=== PATIENT | female | born 1945 | race Caucasian/White ===

== ENCOUNTER 2021-07-31 12:33 | Outpatient (CLI) | payer MEDICARE, OTHER, SELFPAY ==
[2021-07-31 13:02] VITALS: PULSE 102; PULSE 103; PULSE 104; PULSE 105; PULSE 86; PULSE 92; O2SAT 87; O2SAT 88; O2SAT 91; O2SAT 92; O2SAT 94; O2SAT 95
--- NOTE | 2021-07-31 13:06 | CPS ---
Pt arrived for 6 min. walk on room air. Pt's saturation was 87% while at rest on room air. Pt was placed on 1 lpm prior to walk with saturation coming up to 92%. At minute 2 of walk saturation was 88% on 1 lpm. Pt was increased to 2 lpm and finished walk on 2 lpm.
--- NOTE | 2021-08-01 10:53 | PCM.PSN.6M ---
PSN 6 Minute Walk Test 6 Minute Walk Test 6 Minute Walk Test: 6 Minute Walk Test PSN:6-Minute Walk Test Start: 07/31/21 13:02 Freq: Status: Active Protocol: [id number] Document 07/31/21 13:02 [facility] (Rec: 07/31/21 13:06 [facility] [id number]) 6 Minute Walk Test Date Performed 07/31/21 Time Performed 12:30 Height 5 ft Weight: 47.627 kg Weight in Pounds 105.[address]: Douglas Florian Assistive device used: None Pre-test Oxygen Delivery Method Room Air Pulse Ox (%) 87 Pulse Rate (60-100 beats/min) 86 Dyspnea Xavi Scale (0-10) 0 Exertion Xavi Scale (6-20) 6 1st minute Oxygen Flow Rate (L/min) (L/min) 1 Oxygen Delivery Method Nasal Cannula Pulse Ox (%) 91 Pulse Rate (60-100 beats/min) 105 H 2nd minute Oxygen Flow Rate (L/min) (L/min) 1 Oxygen Delivery Method Nasal Cannula Pulse Ox (%) 88 Pulse Rate (60-100 beats/min) 105 H Dyspnea Xavi Scale (0-10) 0 3rd minute Oxygen Flow Rate (L/min) (L/min) 2 Oxygen Delivery Method Nasal Cannula Pulse Ox (%) 94 Pulse Rate (60-100 beats/min) 103 H 4th minute Oxygen Flow Rate (L/min) (L/min) 2 Oxygen Delivery Method Nasal Cannula Pulse Ox (%) 94 Pulse Rate (60-100 beats/min) 102 H 5th minute Oxygen Flow Rate (L/min) (L/min) 2 Oxygen Delivery Method Nasal Cannula Pulse Ox (%) 91 Pulse Rate (60-100 beats/min) 105 H 6th minute Oxygen Flow Rate (L/min) (L/min) 2 Oxygen Delivery Method Nasal Cannula Pulse Ox (%) 92 Pulse Rate (60-100 beats/min) 104 H Dyspnea Xavi Scale (0-10) 0 Exertion Xavi Scale (6-20) 11 Post-test Oxygen Flow Rate (L/min) (L/min) 2 Oxygen Delivery Method Nasal Cannula Pulse Ox (%) 95 Pulse Rate (60-100 beats/min) 92 Full Laps Walked 17 Partial Lap, Number of Tiles Walked 20 Total Distance Walked (ft) 1023 Interpretation Interpretation: The patient ambulated 1023 feet over the course of 6 minutes beginning on room air without assistive devices. Pretesting oxygen saturation was noted to be 87% on room air. She was subsequently placed on 1 L/min of oxygen to begin the test. With ambulation, the nola oxygen saturation was 88%. The supplemental oxygen flow rate was increased to 2 L/min and the patient was able to complete the remainder of the test while maintaining appropriate oxygen saturations. Recommendations Recommendations: 2 L/min of supplemental oxygen should be utilized at all times.
== END 2021-07-31 23:59 | disposition home or self-care (01) ==
PROVIDERS: Referring Provider Internal Medicine Critical Care Medicine; Visit Provider Internal Medicine Critical Care Medicine
DX: R06.00 Dyspnea, unspecified (principal); F17.210 Nicotine dependence, cigarettes, uncomplicated
CPT/HCPCS: 94618

== ENCOUNTER 2021-08-01 09:52 | Outpatient (CLI) | payer MEDICARE, OTHER, SELFPAY ==
--- NOTE | 2021-08-02 12:23 | PFT ---
INTRODUCTION: The patient is a 76-year-old female that presents for pulmonary function studies secondary to a diagnosis of dyspnea. Respiratory therapy reported good patient effort. Bronchodilators were used during testing. INTERPRETATION: Forced expiration spirometry demonstrates the presence of a severe large airways obstructive ventilatory defect. There was a significant response to aerosolized bronchodilators noted, based upon change in FVC. Spirograms are of good quality but do not plateau indicating slow emptying of the lungs. Body plethysmography was performed and revealed an elevated TLC and RV, indicative of underlying hyperinflation and air trapping. Diffusing capacity by single breath CO is reduced at 38% of predicted. IMPRESSION: Partially reversible severe large airways obstructive ventilatory defect with associated hyperinflation, air trapping and symmetric reduction in diffusing capacity.
== END 2021-08-01 23:59 | disposition home or self-care (01) ==
LOC: PSN 09:54
PROVIDERS: Referring Provider Internal Medicine Critical Care Medicine; Visit Provider Internal Medicine Critical Care Medicine
DX: R06.00 Dyspnea, unspecified (principal); F17.210 Nicotine dependence, cigarettes, uncomplicated
CPT/HCPCS: 94060; 94726; 94729

== ENCOUNTER 2021-08-02 13:53 | Outpatient (CLI) | payer MEDICARE, OTHER, SELFPAY ==
--- NOTE | 2021-08-02 13:54 | ECHOD_ITS ---
Reason For Study: Dyspnea/SOB Procedure This was a 2D Doppler, Color Flow transthoracic echocardiogram. Technically difficult study due to patients breast implants. The study was technically difficult. Exam performed in department. Left Ventricle Normal LV size. Left ventricular systolic function is normal. The estimated ejection fraction is 65 %. Diastolic function is indeterminate. No regional wall motion abnormalities noted. Right Ventricle Normal RV size. Normal systolic function. Atria Normal left atrium. Normal right atrium. No doppler evidence for ASD. Mitral Valve There is no mitral annular calcification. Normal mitral valve. Trivial mitral valve insufficiency. Tricuspid Valve Normal tricuspid valve. Trivial tricuspid valve insufficiency. Unable to estimate RV systolic pressure/pulmonary artery pressure due to technically difficult study. Aortic Valve Trisinus/trileaflet aortic valve. Mild focal aortic valve calcification. Pulmonic Valve The pulmonic valve is not well visualized. Great Vessels The aortic root is not well visualized. Pericardium/Pleural No pericardial effusion. MMode/2D Measurements & Calculations LVIDd: 2.6 cm IVSd: 0.80 cm LA dimension: 2.1 cm LVIDs: 1.8 cm LVPWd: 0.78 cm FS: 32.0 % LAV(MOD-sp2): 24.8 ml Time Measurements MV dec time: 0.20 sec Doppler Measurements & Calculations MV E max frederic: 106.1 cm/sec Lat Peak E' Frederic: 6.8 cm/sec Med Peak E' Frederic: 8.2 cm/sec MV A max frederic: 116.3 cm/sec E/E' lat: 15.5 E/E' med: 12.9 MV E/A: 0.91 MV V2 max: 98.1 cm/sec MV P1/2t max frederic: 91.3 cm/sec Ao V2 max: 115.4 cm/sec MV max P.9 mmHg MV P1/2t: 86.4 msec Ao max P.3 mmHg MV V2 mean: 58.8 cm/sec MV mean P.6 mmHg MV dec slope: 309.5 cm/sec2 MV V2 VTI: 20.8 cm MVA(P1/2t): 2.5 cm2 LV V1 max: 105.3 cm/sec PA V2 max: 118.5 cm/sec LV V1 max P.4 mmHg ECHO/Echo Complete Interpretation Summary The study was technically difficult. Left ventricular systolic function is normal. The estimated ejection fraction is 65 %. Trivial mitral valve insufficiency. Trivial tricuspid valve insufficiency. Mild focal aortic valve calcification. Unable to estimate RV systolic pressure/pulmonary artery pressure due to techni tavon difficult study. Diastolic function is indeterminate. Ordering Physician: Douglas Florian Referring Physician: No PCP noted Performed By: Ronny Zimmer RCS
--- NOTE | 2021-08-02 14:30 | CT_ITS ---
HISTORY: Screening. TECHNIQUE: Helically acquired images were obtained of the chest without contrast. A radiation dose optimization technique was used for this scan. # of images incl. paperwork: [id number]. COMPARISON: None. FINDINGS: LARGE AIRWAYS: Clear. LUNGS: Emphysema with mild biapical scarring. 3 mm groundglass right upper lobe nodule. PLEURA: No pleural effusion. HEART AND PERICARDIUM: Heart within normal limits in size. No pericardial effusion. Coronary artery disease. VESSELS: Thoracic aorta nondilated. MEDIASTINUM AND SURESH: No enlarged lymph nodes. SOFT TISSUES: Calcified breast implant capsules with bilateral intracapsular and mild right extracapsular rupture. BONES: Degenerative change. CT/Low Dose CT Lung Screening IMPRESSION: Emphysematous lungs with a 3 mm groundglass right upper lobe pulmonary nodule. Lung-RADS category 2: Benign appearance. Continue annual screening with low-dose CT. Individualized dose optimization techniques were used for this CT. at 1655 Reported and signed by: Lola Garza MD Electronically Signed: Lola Garza MD at 16:54 EST ,
== END 2021-08-02 23:59 | disposition home or self-care (01) ==
LOC: CVS 13:54
PROVIDERS: Referring Provider Internal Medicine Critical Care Medicine; Visit Provider Internal Medicine Critical Care Medicine
DX: F17.210 Nicotine dependence, cigarettes, uncomplicated (principal); R06.00 Dyspnea, unspecified
CPT/HCPCS: 71271; 93306

== ENCOUNTER 2023-04-24 11:27 | Emergency (ER) | payer MEDICARE, OTHER, SELFPAY ==
[2023-04-24 11:28] VITALS: BP 121/63; PULSE 92; RESP 16; TEMP 36.1; O2SAT 99; BMI 21.7
--- NOTE | 2023-04-24 12:34 | CT_ITS ---
EXAM: CT ABDOMEN AND PELVIS WITH INTRAVENOUS CONTRAST CLINICAL INDICATION: pain TECHNIQUE: Helically acquired images were obtained of the abdomen and pelvis with intravenous contrast. This CT exam was performed using one or more of the following dose reduction techniques: automated exposure control, adjustment of the mA and/or kV according to patient size, and/or use of iterative reconstruction technique. CONTRAST: IV 100mL Isovue-300 COMPARISON: No relevant prior studies available. FINDINGS: LOWER THORAX: Normal. Lung bases are clear. No cardiomegaly. No pericardial effusion. ABDOMEN: LIVER: Normal. Homogeneous. No focal mass. PANCREAS: Normal. No focal cystic or solid mass. SPLEEN: Normal. Normal size without focal cystic or solid mass. ADRENALS: Normal. No nodules. KIDNEYS AND URETERS: Normal. Normal renal size and position. No hydronephrosis. STOMACH AND BOWEL: Mild thickening of the gastric antral wall raises possibility of acute inflammatory change. PELVIS: APPENDIX: No evidence of acute appendicitis. BLADDER: Normal. REPRODUCTIVE: Mild distention of a parametrial and bilateral ovarian veins may represent changes of pelvic venous insufficiency. 19 mm left ovarian cyst. ACR White Paper guidelines (Cruz, et. al. JACR 2020;17(2):248-254) suggest no follow-up is necessary. ABDOMEN and PELVIS: INTRAPERITONEAL SPACE: Normal. No ascites or other fluid collection. No free air. BONES/JOINTS: 2.2 cm saccular ectasia of the infrarenal abdominal aorta. SOFT TISSUES: Normal. No discrete abdominal or pelvic wall hernia. VASCULATURE: See above. LYMPH NODES: Normal. No enlarged lymph nodes. CT/Abdomen/Pelvis W IV Cont ONLY IMPRESSION: Question gastric antritis. Electronically Signed: Luis Ellis MD at 13:47 EDT ,
--- NOTE | 2023-04-24 12:36 | ED.VIS.GI ---
HPI HPI - GI History of Present Illness Chief Complaint: Abd Pain Informant: patient Narrative Narrative: Patient presents with abdominal pain. Patient tells me its not a week. She thinks it started on Thursday. It is epigastric and goes to both sides. It is not in the back in any time. She has never been syncopal or presyncopal. She does not have nausea vomiting or diarrhea or change in bowel habits. No constipation. She is eating and drinking okay. No GERD or history of GERD. No urinary symptoms. When specifically asked, she does state that sometimes the pain seems to go into the lower chest but mostly its upper abdomen. She has never been short of breath. No history of AAA or any vascular disease. Her only illness is COPD. She has never had diabetes or cholesterol or high blood pressure. She states she does not feel sick but it does hurt in the upper abdomen. Nothing really seems to change it. She denies any prior abdominal surgery including no hysterectomy or cholecystectomy. On her chart I do see history of a kidney stone but she has no urinary symptoms flank or back pain. All of her pain is anterior. She does not drink alcohol except a rare glass of wine. She has never had pancreatitis. [facility] Medical History Bladder infection COPD (chronic obstructive pulmonary disease) Kidney stone Home Medications folic acid 1 mg tablet 1 mg PO DAILY 07/17/21 [History Last Taken Unknown] multivitamin 1 tab PO DAILY 07/17/21 [History Last Taken Unknown] glycopyrrolate 9 mcg-formoterol 4.8 mcg HFA aerosol inhaler (Bevespi Aerosphere) 2 puff inhalation QAM AND QPM #1 inh 09/24/22 [Rx Last Taken Unknown] esomeprazole magnesium 20 mg capsule,delayed release (Nexium) 20 mg PO DAILY #30 caps 04/24/23 [Rx Last Taken Unknown] sucralfate 1 gram tablet (Carafate) 1 g PO BID #20 tabs 04/24/23 [Rx Last Taken Unknown] Allergy/AdvReac Type Severity Reaction Status Date / Time Sulfa (Sulfonamide AdvReac Rash Verified 04/24/23 11:29 Antibiotics) Family History Father COPD (chronic obstructive pulmonary disease) Surgical History No pertinent past surgical history Social History Smoking Status: Current every day smoker tobacco type: cigarettes ROS ROS ED ROS Narrative A complete review of systems was performed and is negative except as documented in the history of present illness. Some specific details below. Constitutional: No recent fevers or chills. EYE: No change in eye color. ENT: No difficulty swallowing. No swelling. No pain. No GERD. No pain with swallowing. CV: No palpitations. Occasionally she feels some discomfort in the lower chest but mostly upper abdomen. Respiratory: No dyspnea. No hemoptysis. No difficulty taking breaths. GI: Please see history of present illness. : No frequency dysuria or hematuria. Musculoskeletal: No recent trauma. No pains. Skin: No rash. Nondiaphoretic. Neuro: No weakness or numbness. Endocrine: No polyuria or polydipsia. EXAM Physical Exam Narrative Exam Narrative: CONSTITUTIONAL: Patient is nontoxic in appearance. The patient looks comfortable. HEENT: No notable trauma. Mucous membranes moist. EYES: No conjunctival injection. No pallor. CARDIOVASCULAR: Regular rate. Regular rhythm. No notable murmur. No JVD. Tones are not muffled and peripheral pulses including lower extremities are intact equal and strong. RESPIRATORY: No respiratory distress. Breathing is unlabored. No wheezes. No rhonchi. No rales. No pain with a deep breath. GASTROINTESTINAL: Not distended. Bowel sounds are normal. She does have some mild tenderness across the upper abdomen. But no rebound or guarding. I hear no bruit. I do not feel pulsatile mass. GENITOURINARY: No tenderness over the bladder. No CVA tenderness on either side.. MUSCULOSKELETAL: Atraumatic. No peripheral edema. No cord. NEUROLOGICAL: Patient is alert and appropriate. No focal deficit noted. SKIN: No noted rashes. No diaphoresis. No pallor. No mottling of the lower extremities. PSYCHIATRIC: Patient is calm. Mood is appropriate. Const Vital Signs: 04/24/23 11:28 Temperature 97 F L Temperature Source Temporal Pulse Rate 92 Respiratory Rate 16 Blood Pressure 121/63 H Blood Pressure Mean 82 Pulse Ox 99 Oxygen Delivery Method Room Air MDM MDM MDM Narrative Medical decision making narrative: Patient CBC shows no marked abnormality. Patient's electrolytes look good. She had trace elevation of the glucose at 115. Patient's LFTs show no marked abnormalities. Patient's lipase is normal. My independent interpretation of the patient's CT scan of the abdomen shows no obstruction or free air. Final reading did make note of what they suspect is some antral gastritis with some mild thickening of the antral wall. This patient has some discomfort but she is eating and drinking and moving bowels fine. No fevers or chills. No nausea or vomiting. My suspicion is that this may represent ulcer disease with the CT findings. We will get her on a PPI. I will write for short course of Carafate. We discussed that this is unlikely cancer but she may need a scope in the future. If she develops pain, vomiting, fevers, blood in the stool or any other concerns she should return. Lab Data Attestation: I reviewed the patient's lab results. Labs: Laboratory Results - last 24 hr 04/24/23 11:50 WBC 10.6 RBC 4.80 Hgb 14.4 Hct 44.5 MCV 92.7 MCH 30.0 MCHC 32.4 RDW Std Deviation 48.7 H RDW Coeff of Skyla 14.1 Plt Count 368 MPV 9.1 Immature Gran % (Auto) 0.200 Neut % (Auto) 74.5 H Lymph % (Auto) 15.5 L [place] % (Auto) 8.3 Eos % (Auto) 0.8 Baso % (Auto) 0.7 Absolute Neuts (auto) 7.9 H Absolute Lymphs (auto) 1.64 Nucleated RBC % 0 Sodium 137 Potassium 4.0 Chloride 101 Carbon Dioxide 32.0 Anion Gap 4 L BUN 16 Creatinine 0.72 Estim Creat Clear Calc 33.30 Est GFR (MDRD) Af Amer 100 Est GFR (MDRD) Non-Af 83 BUN/Creatinine Ratio 22.2 H Glucose 115 H Calcium 9.6 Total Bilirubin 0.40 AST 14 L ALT 15 Alkaline Phosphatase 97 Troponin I High Sens 5 Total Protein 7.7 Albumin 3.9 Globulin 3.8 Albumin/Globulin Ratio 1.0 Lipase 62 Radiography Diagnostic Testing: Clinical Impression(s) from Imaging Studies Abdomen/Pelvis CT 04/24/23 12:34 IMPRESSION: Question gastric antritis. Electronically Signed: Luis Ellis MD at 13:47 EDT , Discharge Plan Triage Chief Complaint: Abd Pain ED Provider: Red Ayala Dx/Rx/DC Orders Clinical Impression: Gastritis, Abdominal pain Instructions: Abdominal Pain, ED Gastritis (Adult) Prescriptions: New esomeprazole magnesium [Nexium] 20 mg capsule,delayed release(DR/EC) 20 mg PO DAILY Qty: 30 0RF sucralfate [Carafate] 1 gram tablet 1 g PO BID Qty: 20 0RF No Action multivitamin Tablet 1 tab PO DAILY folic acid 1 mg tablet 1 mg PO DAILY Bevespi Aerosphere 9-4.8 mcg HFA aerosol inhaler 2 puff inhalation QAM AND QPM Qty: 1 11RF Primary Care Provider: Care Physician,No Primary Referrals: Daniel Gallego MD [Med Staff - Clarification Operator] - As soon as possible FriendRaz DO [Med Staff - Active Staff] - 10-14 Days if not better Care Physician,No Primary [Primary Care Provider] - Disposition Disposition: Home, Self Care
--- NOTE | 2023-04-24 12:37 | EKG12_ITS ---
Test Reason : Blood Pressure : / mmHG Vent. Rate : 075 BPM Atrial Rate : 075 BPM P-R Int : 134 ms QRS Dur : 082 ms QT Int : 364 ms P-R-T Axes : 083 078 051 degrees QTc Int : 406 ms Normal sinus rhythm Normal ECG Confirmed by TEJINDER RIOS, LILIANE ([id number]), social media editor CLINT GARCIA ([id number]) on 05/04/2023 7:45:43 AM Referred By: Confirmed By:MARY MARR MD
[2023-04-24 12:47] LABS: Absolute Lymphocyte Count 1.64 X10^3/uL (0.83-4.51); Absolute Neutrophil Count 7.9 X10^3/uL (2.0-7.7); Basophil# 0.07 X10^3/uL; Basophil% 0.7 % (0-1); Eosinophil# 0.08 X10^3/uL; Eosinophils% 0.8 % (0-5); Hematocrit 44.5 % (37-47); Hemoglobin 14.4 g/dL (12.0-15.0); Lymphocyte # 1.64 X10^3/ul (0.83-4.51); Lymphocyte % 15.5 % (19-41); Mean Corp Hgb Conc 32.4 g/dL (32-36); Mean Corpuscular Volume 92.7 fL (81-99); Mean Platelet Vol. 9.1 fl (6.2-12.0); Monocyte# 0.88 X10^3/uL; Monocyte% 8.3 % (0-10); NRBC Flagged by Analyzer 0 % (0-5); Neutrophil # 7.88 X10^3/uL (2.7-7.7); Neutrophil % 74.5 % (47-70); Platelet Count 368 K/mm3 (150-450); RBC Distribution Width CV 14.1 % (11.6-14.6); RBC Distribution Width SD 48.7 fl (35.1-43.9); White Blood Count 10.6 K/mm3 (4.4-11.0)
[2023-04-24] MEDS: 0.9% Normal Saline (1000mL) 500 ML 1000 ML IV (12:52)
[2023-04-24 13:08] LABS: AST(SGOT) 14 U/L (15-37); Alanine Aminotransfer ALT/SGPT 15 U/L (13-56); Albumin, Serum 3.9 g/dL (3.2-5.0); Alkaline Phosphatase 97 U/L (45-117); Anion Gap 4 (5-15); BUN 16 mg/dL (7-18); BUN/Creat Ratio 22.2 RATIO (10-20); Calcium,Total 9.6 mg/dL (8.5-10.1); Chloride 101 mmol/L (98-107); Creatinine, Serum 0.72 mg/dL (0.55-1.02); EST Glomerular Filtration Rate 83 mL/min (>60); Est Glom Filt Rate - Afr Amer 100 mL/min (>60); Globulin 3.8 g/dL (2.2-4.2); Glucose 115 mg/dL (74-106); Lipase 62 U/L (13-75); Protein, Total 7.7 g/dL (6.4-8.2); Sodium Level 137 mmol/L (136-145); Troponin-I HS 5 pg/mL (3.0-54.0)
[2023-04-24 14:30] VITALS: BP 118/75; PULSE 77; PULSE 87; RESP 18; RESP 20; O2SAT 90; O2SAT 93
[2023-04-24] MEDS: Pantoprazole Sodium 80 MG in 0.9% Normal Saline (50mL Bag) 15 ML 420 MG IV BOLUS (15:02)
== END 2023-04-24 15:13 | disposition home or self-care (01) ==
PROVIDERS: Emergency Provider Emergency Medicine; Visit Provider Emergency Medicine
DX: K29.70 Gastritis, unspecified, without bleeding (principal); R10.9 Unspecified abdominal pain; F17.210 Nicotine dependence, cigarettes, uncomplicated
CPT/HCPCS: 74177; 80053; 83690; 84484; 85025; 93005; 96360; 99284; Q9967; A4216; J3490

== ENCOUNTER → 2024-05-17 | Outpatient (CLI) | payer MEDICARE, OTHER, SELFPAY ==
[2024-05-17 17:46] LABS: Absolute Lymphocyte Count 1.81 X10^3/uL (0.83-4.51); Absolute Neutrophil Count 4.4 X10^3/uL (2.0-7.7); Basophil# 0.06 X10^3/uL; Basophil% 0.8 % (0-1); Eosinophils% 2.8 % (0-5); Hematocrit 43.8 % (37-47); Hemoglobin 13.6 g/dL (12.0-15.0); Lymphocyte # 1.81 X10^3/ul (0.83-4.51); Lymphocyte % 25.6 % (19-41); Mean Corp Hgb Conc 31.1 g/dL (32-36); Mean Corpuscular Hgb 29.4 pg (27.0-32.0); Mean Corpuscular Volume 94.8 fL (81-99); Mean Platelet Vol. 9.1 fl (6.2-12.0); Monocyte# 0.57 X10^3/uL; Monocyte% 8.1 % (0-10); NRBC Flagged by Analyzer 0 % (0-5); Neutrophil # 4.41 X10^3/uL (2.7-7.7); Neutrophil % 62.6 % (47-70); Platelet Count 490 K/mm3 (150-450); RBC Distribution Width CV 14.1 % (11.6-14.6); RBC Distribution Width SD 48.9 fl (35.1-43.9); Red Blood Count 4.62 M/mm3 (4.2-5.4); White Blood Count 7.1 K/mm3 (4.4-11.0)
[2024-05-17 18:30] LABS: ALB/GLOB Ratio 0.9 RATIO (0.9-2.4); AST(SGOT) 14 U/L (15-37); Alanine Aminotransfer ALT/SGPT 17 U/L (13-56); Albumin, Serum 3.3 g/dL (3.2-5.0); Alkaline Phosphatase 87 U/L (45-117); Anion Gap 7 (5-15); BUN 8 mg/dL (7-18); BUN/Creat Ratio 11.6 RATIO (10-20); Chloride 100 mmol/L (98-107); Cholesterol 258 mg/dL (200); Creatinine, Serum 0.69 mg/dL (0.55-1.02); EST Glomerular Filtration Rate 87 mL/min (>60); Est Glom Filt Rate - Afr Amer 106 mL/min (>60); Globulin 3.7 g/dL (2.2-4.2); Glucose 130 mg/dL (74-106); High Density Lipoprotein 81 mg/dL; Potassium 3.6 mmol/L (3.5-5.1); Sodium Level 137 mmol/L (136-145); Triglycerides 210 mg/dL; Very Low Density Lipoprotein 42 mg/dL (5-40)
[2024-05-17 18:36] LABS: Vitamin D,25 Hydroxy 37.5 ng/mL
== END | disposition home or self-care (01) ==
LOC: MFPLAB 14:24
PROVIDERS: PCP Family Medicine; Visit Provider Family Medicine
DX: R53.83 Other fatigue (principal); Z13.220 Encounter for screening for lipoid disorders
CPT/HCPCS: 36415; 80053; 80061; 82306; 85025

== ENCOUNTER → 2025-06-01 | Outpatient (CLI) | payer MEDICARE, OTHER, SELFPAY ==
[2025-06-01 15:52] LABS: Hematocrit 42.6 % (37-47); Hemoglobin 13.3 g/dL (12.0-15.0); Mean Corp Hgb Conc 31.2 g/dL (32-36); Mean Corpuscular Volume 93.0 fL (81-99); Mean Platelet Vol. 9.6 fl (6.2-12.0); Platelet Count 372 K/mm3 (150-450); RBC Distribution Width CV 13.9 % (11.6-14.6); RBC Distribution Width SD 47.8 fl (35.1-43.9); Red Blood Count 4.58 M/mm3 (4.2-5.4); White Blood Count 7.1 K/mm3 (4.4-11.0)
[2025-06-01 16:10] LABS: Differential Indicated MANUAL DIFF
[2025-06-01 23:06] LABS: Neutrophil-Segmented 61 % (47-70); Total Cells Counted 100 (MANUAL DIFF)
== END | disposition home or self-care (01) ==
LOC: MFPLAB 11:58
PROVIDERS: PCP Family Medicine; Visit Provider Family Medicine
DX: R79.89 Other specified abnormal findings of blood chemistry (principal)
CPT/HCPCS: 36415; 85025